=== PATIENT | female | born 1980 | race African-American/Black ===

== ENCOUNTER 2016-06-15 19:21 | Emergency (ER) | payer OTHER ==
[~2016-06-15] VITALS: Ht 160 cm; Wt 56.7 kg
[~2016-06-15 19:21] MED LIST: HYDROCODON-ACE1 EA15 ORAL; IBUPROFEN600 MG ORAL
[2016-06-15] MEDS ORDERED: TdaP Vaccine 0.5ml Syr IM ONE (19:45)
[2016-06-15] MEDS ORDERED: Bacitracin Oint UD TOPIC ONE (19:45)
[2016-06-15] MEDS ORDERED: Morphine Sulfate 4mg/ml Inj IM ONE (20:00)
[2016-06-15] MEDS ORDERED: Lidocaine 1% 10mg/ml/Epi 0.005mg/ml 30ml vial INJ ONE (20:00)
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
[2016-06-15] MEDS ORDERED: CEPHALEXIN500 MG ORAL (21:48)
[2016-06-15] MEDS ORDERED: IBUPROFEN600 MG ORAL (21:48)
[2016-06-15 22:40] VITALS: BP 92/71
--- NOTE | 2016-06-16 11:16 | Diagnostic Imaging Report ---
Indication: pain Findings: 3 views of the right hand were obtained. Normal bony mineralization and alignment are demonstrated. There is an old fracture of the fifth metacarpal. No acute fractures, erosions, or periosteal reaction are seen. Soft tissues are unremarkable. Impression: No acute fracture
--- NOTE | 2016-06-16 12:24 | Diagnostic Imaging Report ---
Indication: Pain Findings: 3 views of the right wrist were obtained. No acute fractures, malalignment, erosions or periostitis are identified. Bone mineralization is within normal limits. Soft tissues/skin irregularity on the dorsal part of the wrist and forearm noted presumably due to injury. Impression: Soft tissue injury
== END 2016-06-15 22:40 ==
LOC: EDBD 19:21 → EMR 19:37
DX: S41.111A Laceration without foreign body of right upper arm, initial encounter (principal); Z23 Encounter for immunization; X99.1XXA Assault by knife, initial encounter; Y93.9 Activity, unspecified; Y92.9 Unspecified place or not applicable
CPT/HCPCS: 12006; 73110; 73130; 90471; 90715; 96372; 96374; 99284; J2270